=== PATIENT | female | born 1955 ===

== ENCOUNTER 2024-02-21 11:06 | Outpatient (OUT) | payer MEDICARE, OTHER, SELFPAY ==
--- NOTE | 2024-02-21 | XR_ITS ---
[address] [address] Patient Name: DOLORES NOVA MRN: [id number] date: 1955 Sex: F Assigned Patient Location: Current Patient Location: Accession/Order Number: [id number] Exam Date: 02/21/2024 11:10 Report Date: 02/22/2024 07:04 At the request of: NONA HOPE Procedure: XR foot RT min 3V PROCEDURE: XR foot RT min 3V HISTORY: RIGHT FOOT PAIN COMPARISON: None. FINDINGS: BONES:Marked bunion formation. Dorsal dislocation of the second metatarsophalangeal joint without appreciable fracture. Small calcaneal plantar spur. No significant flattening of the plantar arch. SOFT TISSUES:No visible soft tissue swelling. EFFUSION:None visible. OTHER: Negative. XR/XR foot RT min 3V IMPRESSION: 1. Marked bunion formation. 2. Dorsal dislocation of the second metatarsophalangeal joint. Electronically authenticated by: JUAN ANTONIO DENISE Date: 02/22/2024 07:04
== END 2024-02-21 11:07 | disposition home or self-care (01) ==
LOC: EC 11:07
PROVIDERS: Visit Provider Podiatrist Foot & Ankle Surgery
DX: M79.671 Pain in right foot (principal); M21.611 Bunion of right foot; S93.124A Dislocation of metatarsophalangeal joint of right lesser toe(s), initial encounter
CPT/HCPCS: 73630